=== PATIENT | female | born 1955 | race Caucasian/White ===

== ENCOUNTER → 2016-04-25 | Outpatient (CLI) | payer OTHER ==
[2016-04-25 09:13] LABS: Basophils % (A) 0 %; CH 29.4; CHCM 32.9; Eosinophils # (A) 0.2 k/uL (0-0.7); Eosinophils % (A) 2 %; HDW 2.71; HGB 14.6 gm/dL (11.4-16.0); Luc # (Auto) 0.25; Luc % (Auto) 3; Lymphocytes # (A) 2.7 k/uL (1.0-4.8); Lymphocytes % (A) 31 %; MCH 29.2 pg (25.0-35.0); MCHC 32.6 g/dL (31.0-37.0); MCV 89.6 fL (80.0-100.0); Mean Platelet Volume 7.8; Monocytes # (A) 0.5 k/uL (0-1.0); Monocytes % (A) 5 %; Neutrophils # (A) 5.2 k/uL (1.3-7.7); Neutrophils % (A) 59 %; RBC 5.02 m/uL (3.80-5.40); RDW 12.9 % (11.5-15.5); WBC 8.9 k/uL (3.8-10.6); WBC (Perox) 9.16
[2016-04-25 09:22] LABS: ALT 49 U/L (9-52); AST 25 U/L (14-36); Alkaline Phosphatase 77 U/L (38-126); Anion Gap 11 mmol/L; Blood Urea Nitrogen 15 mg/dL (7-17); Calcium 9.8 mg/dL (8.4-10.2); Carbon Dioxide 29 mmol/L (22-30); Chloride 104 mmol/L (98-107); Cholesterol 266 mg/dL (<200); Glucose 117 mg/dL (74-99); HDL Cholesterol 49 mg/dL (40-60); Non-African American GFR(MDRD) >60 (>60 ml/min/1.73 sqM); Potassium 3.6 mmol/L (3.5-5.1); Sodium 144 mmol/L (137-145); Total Bilirubin 0.6 mg/dL (0.2-1.3); Total Protein 7.3 g/dL (6.3-8.2); Triglycerides 204 mg/dL (<150)
[2016-04-25 09:39] LABS: Appearance,Urine Turbid (Clear); Bacteria,Urine Moderate /hpf; Bilirubin,Urine Negative (Negative); Glucose,Urine (UA) Negative (Negative); Ketones,Urine Negative (Negative); Leukocyte Esterase,Urine Large (Negative); Mucus,Urine Few /hpf; Nitrite,Urine Negative (Negative); PH, Urine 5.5 (5.0-8.0); Particle Count 33583; Protein,Urine 1+ (Negative); RBC,Urine 10 /hpf (0-5); Specific Gravity,Urine 1.019 (1.001-1.035); Squamous Epithelial Cell,Urine 45 /hpf (0-4); UA Billing (MACRO vs. MICRO) MICRO; WBC,Urine >182 /hpf (0-5)
[2016-04-25 10:08] LABS: Hepatitis C Virus IgG Index 0.01
[2016-04-25 10:12] LABS: Hepatitis C Virus IgG Ab Negative (Negative)
== END | disposition home or self-care (01) ==
LOC: LABWHC1 08:44
PROVIDERS: ATTEND Internal Medicine
DX: I10 Essential (primary) hypertension (principal); E55.9 Vitamin D deficiency, unspecified; R53.83 Other fatigue; Z13.9 Encounter for screening, unspecified
CPT/HCPCS: 36415; 80053; 80061; 81001; 82306; 84443; 85025; 86803

== ENCOUNTER → 2016-06-25 | Outpatient (CLI) | payer OTHER | END | disposition home or self-care (01) | LOC: LABWHC1 09:36 | PROVIDERS: ATTEND Internal Medicine Interventional Cardiology | DX: E03.9 Hypothyroidism, unspecified (principal) | CPT/HCPCS: 36415; 84439; 84443 ==

== ENCOUNTER → 2016-12-28 | Outpatient (CLI) | payer OTHER ==
[2016-12-28 10:38] LABS: Basophils % (A) 0 %; CHCM 33.6; Eosinophils # (A) 0.2 k/uL (0-0.7); Eosinophils % (A) 2 %; HCT 43.4 % (34.0-46.0); HGB 14.4 gm/dL (11.4-16.0); Luc % (Auto) 3; Lymphocytes % (A) 26 %; MCH 28.7 pg (25.0-35.0); MCHC 33.1 g/dL (31.0-37.0); MCV 86.6 fL (80.0-100.0); Monocytes # (A) 0.4 k/uL (0-1.0); Monocytes % (A) 5 %; Neutrophils # (A) 4.9 k/uL (1.3-7.7); Neutrophils % (A) 63 %; RBC 5.02 m/uL (3.80-5.40); RDW 13.1 % (11.5-15.5); WBC 7.8 k/uL (3.8-10.6); WBC (Perox) 8.24
[2016-12-28 11:21] LABS: ALT 54 U/L (9-52); AST 26 U/L (14-36); Alkaline Phosphatase 69 U/L (38-126); Anion Gap 10 mmol/L; Blood Urea Nitrogen 14 mg/dL (7-17); Calcium 9.6 mg/dL (8.4-10.2); Carbon Dioxide 27 mmol/L (22-30); Chloride 103 mmol/L (98-107); Cholesterol 245 mg/dL (<200); Glucose 99 mg/dL (74-99); HDL Cholesterol 41 mg/dL (40-60); Non-African American GFR(MDRD) >60 (>60 ml/min/1.73 sqM); Potassium 3.9 mmol/L (3.5-5.1); Sodium 140 mmol/L (137-145); Total Bilirubin 0.7 mg/dL (0.2-1.3); Total Protein 6.9 g/dL (6.3-8.2)
[2016-12-28 12:10] LABS: Hepatitis C Virus IgG Ab Negative (Negative); Hepatitis C Virus IgG Index 0.02
== END | disposition home or self-care (01) ==
LOC: LABWHC1 09:30
PROVIDERS: ATTEND Internal Medicine
DX: E78.5 Hyperlipidemia, unspecified (principal); E55.9 Vitamin D deficiency, unspecified; I10 Essential (primary) hypertension; Z13.9 Encounter for screening, unspecified
CPT/HCPCS: 36415; 80053; 80061; 82306; 85025; 86803

== ENCOUNTER → 2017-10-12 | Outpatient (CLI) | payer OTHER ==
--- NOTE | 2017-10-13 08:28 | MM ---
Reason for exam: screening (asymptomatic). Last mammogram was performed 2 years and 9 months ago. History: Patient is postmenopausal. Benign excisional biopsy of the left breast. Physical Findings: A clinical breast exam by your physician is recommended on an annual basis and results should be correlated with mammographic findings. MG Screening Mammo w CAD Bilateral CC and MLO view(s) were taken. Prior study comparison: January 09, 2015, bilateral MG screening mammo w CAD. August 26, 2012, mammogram, performed at [facility]. The breast tissue is heterogeneously dense. This may lower the sensitivity of mammography. There is no discrete abnormality. ASSESSMENT: Negative, BI-RAD 1 RECOMMENDATION: Routine screening mammogram of both breasts in 1 year.
== END | disposition home or self-care (01) ==
LOC: RADMAMWWP 09:05
PROVIDERS: ATTEND Internal Medicine
DX: Z12.31 Encounter for screening mammogram for malignant neoplasm of breast (principal)
CPT/HCPCS: 77067

== ENCOUNTER → 2018-05-10 | Outpatient (CLI) | payer OTHER ==
[2018-05-10 08:55] LABS: Basophils % (A) 1 %; Eosinophils # (A) 0.2 k/uL (0-0.7); Eosinophils % (A) 3 %; HGB 14.6 gm/dL (11.4-16.0); Lymphocytes # (A) 2.4 k/uL (1.0-4.8); Lymphocytes % (A) 28 %; MCH 28.4 pg (25.0-35.0); MCHC 32.3 g/dL (31.0-37.0); MCV 87.9 fL (80.0-100.0); Monocytes # (A) 0.4 k/uL (0-1.0); Monocytes % (A) 5 %; Neutrophils # (A) 5.3 k/uL (1.3-7.7); Neutrophils % (A) 63 %; Platelet Count 223 k/uL (150-450); RBC 5.12 m/uL (3.80-5.40); RDW 13.6 % (11.5-15.5); WBC 8.5 k/uL (3.8-10.6)
[2018-05-10 09:26] LABS: Appearance,Urine Cloudy (Clear); Bacteria,Urine Rare /hpf; Bilirubin,Urine Negative (Negative); Blood,Urine Negative (Negative); Color,Urine Yellow; Glucose,Urine (UA) Negative (Negative); Ketones,Urine Negative (Negative); Leukocyte Esterase,Urine Large (Negative); Mucus,Urine Rare /hpf; Nitrite,Urine Negative (Negative); Protein,Urine Negative (Negative); Specific Gravity,Urine 1.012 (1.001-1.035); Squamous Epithelial Cell,Urine 13 /hpf (0-4); Urobilinogen,Urine <2.0 mg/dL (<2.0); WBC,Urine 32 /hpf (0-5)
[2018-05-10 17:49] LABS: Albumin 4.3 g/dL (3.80-4.90); Albumin/Globulin Ratio 1.95 (1.20-2.10); Calcium 9.3 mg/dL (8.7-10.3); Globulin 2.2 g/dL (1.6-3.3); LDL Cholesterol,Calculated 143.8 mg/dL (0.0-131.0); Potassium 4.2 mmol/L (3.5-5.5); Total Bilirubin 0.4 mg/dL (0.3-1.2); Total Protein 6.5 g/dL (6.2-8.2); VLDL Calculation 29.2 mg/dL (5.00-40.00)
== END | disposition home or self-care (01) ==
LOC: LABWHC1 08:06
PROVIDERS: ATTEND Internal Medicine
DX: E55.9 Vitamin D deficiency, unspecified (principal); I10 Essential (primary) hypertension
CPT/HCPCS: 36415; 80053; 80061; 81001; 82306; 85025

== ENCOUNTER 2018-08-26 10:42 | Day surgery (SDC) | payer OTHER ==
[2018-08-25 09:51] VITALS: BMI 33.4
[2018-08-26 11:15] VITALS: TEMP 96.9
[2018-08-26] MEDS ORDERED: LACTATED RINGERS 1,000 ML IV ONE (11:15)
[2018-08-26] MEDS ORDERED: PROPOFOL 10 MG/ML 20 ML VIAL IV ONE (12:07)
--- NOTE | 2018-08-26 12:21 | P.PCN ---
Date of Procedure: 08/26/18 Procedure(s) Performed: BRIEF HISTORY: Patient is a 63-year-old pleasant 8 female scheduled for an elective colonoscopy as a part of value should of Hemoccult-positive stool. PROCEDURE PERFORMED: Colonoscopy with biopsy. PREOPERATIVE DIAGNOSIS: Hemoccult-positive stool. IV sedation per Anesthesia. PROCEDURE: After informed consent was obtained, the patient, was brought into the endoscopy unit. IV sedation was administered by Anesthesia under continuous monitoring. Digital rectal examination was normal. Initially the Olympus CF-160 flexible video colonoscope was then inserted in the rectum, gradually advanced into the cecum without any difficulty. Careful examination was performed as the scope was gradually being withdrawn. Ileocecal valve and the appendiceal orifice were visualized and appeared normal. Prep was excellent. Mucosa of the cecum, appeared normal. In the ascending colon there was a 2-3 mm sessile polyp that was removed by cold biopsy. The rest of the ascending colon, transverse colon, descending colon, sigmoid colon, and rectum appeared normal. Scattered sigmoid diverticulosis seen. Retroflexion was performed in the rectum and no lesions were seen. The patient tolerated the procedure well. IMPRESSION: 2-3 mm sessile ascending colon polyp status post removal by cold biopsy Scattered sigmoid diverticulosis RECOMMENDATIONS: Findings of this examination were discussed with the patient as well as her family. She was advised to follow with the biopsy results. If the biopsy shows adenoma she can have a repeat colonoscopy in 5 years.
[2018-08-26 12:27] VITALS: RESP 18
[2018-08-26 12:38] VITALS: BP 113/66; PULSE 82
== END 2018-08-26 12:54 | disposition home or self-care (01) ==
LOC: ORWHC2ENDO 10:42
PROVIDERS: ATTEND Internal Medicine Gastroenterology
DX: D12.2 Benign neoplasm of ascending colon (principal); K57.30 Diverticulosis of large intestine without perforation or abscess without bleeding; I10 Essential (primary) hypertension; E78.5 Hyperlipidemia, unspecified; K21.9 Gastro-esophageal reflux disease without esophagitis; Z79.899 Other long term (current) drug therapy; Z86.11 Personal history of tuberculosis
CPT/HCPCS: 88305; 45380; J2704

== ENCOUNTER → 2019-10-13 | Outpatient (CLI) | payer OTHER ==
--- NOTE | 2019-10-16 11:27 | MM ---
Reason for exam: screening (asymptomatic). Last mammogram was performed 2 years ago. History: Patient is postmenopausal. Benign excisional biopsy of the left breast. Physical Findings: A clinical breast exam by your physician is recommended on an annual basis and results should be correlated with mammographic findings. MG Screening Mammo w CAD Bilateral CC and MLO view(s) were taken. Prior study comparison: October 12, 2017, bilateral MG screening mammo w CAD. January 09, 2015, bilateral MG screening mammo w CAD. The breast tissue is heterogeneously dense. This may lower the sensitivity of mammography. Subtle focal asymmetry 1 o'clock right breast more defined from prior. ASSESSMENT: Incomplete: need additional imaging evaluation, BI-RAD 0 RECOMMENDATION: Special view mammogram of the right breast. (3D) If lesion persists on supplemental views, image directed ultrasound is recommended. [facility] will attempt to contact patient to return for supplemental views and ultrasound if indicated.
== END | disposition home or self-care (01) ==
LOC: RADMAMWWP 13:28
PROVIDERS: ATTEND Internal Medicine
DX: Z12.31 Encounter for screening mammogram for malignant neoplasm of breast (principal)
CPT/HCPCS: 77067

== ENCOUNTER → 2019-10-25 | Outpatient (CLI) | payer OTHER ==
--- NOTE | 2019-10-25 13:29 | MM ---
Reason for exam: additional evaluation requested from abnormal screening. Last mammogram was performed less than 1 month ago. History: Patient is postmenopausal. Benign excisional biopsy of the left breast. Physical Findings: Nurse did not find any significant physical abnormalities on exam. MG Work Up Mamm w CAD RT Spot compression CC, spot compression MLO, and LM view(s) were taken of the right breast. Prior study comparison: October 13, 2019, bilateral MG screening mammo w CAD. October 12, 2017, bilateral MG screening mammo w CAD. There are scattered fibroglandular densities. No significant new findings when compared with previous films. These results were verbally communicated with the patient and result sheet given to the patient on 10/25/19. ASSESSMENT: Benign, BI-RAD 2 RECOMMENDATION: Return to routine screening mammogram schedule for both breasts.
== END | disposition home or self-care (01) ==
LOC: RADMAMWWP 08:53
PROVIDERS: ATTEND Internal Medicine
DX: R92.8 Other abnormal and inconclusive findings on diagnostic imaging of breast (principal)
CPT/HCPCS: 77065

== ENCOUNTER → 2020-01-22 | Outpatient (CLI) | payer OTHER ==
[2020-01-22 09:34] LABS: Basophils % (A) 0 %; Eosinophils # (A) 0.1 k/uL (0-0.7); Eosinophils % (A) 1 %; HCT 43.5 % (34.0-46.0); HGB 14.2 gm/dL (11.4-16.0); Lymphocytes # (A) 2.3 k/uL (1.0-4.8); Lymphocytes % (A) 25 %; MCH 28.5 pg (25.0-35.0); MCHC 32.7 g/dL (31.0-37.0); Mean Platelet Volume 8.1; Monocytes # (A) 0.5 k/uL (0-1.0); Monocytes % (A) 5 %; Neutrophils # (A) 6.2 k/uL (1.3-7.7); Neutrophils % (A) 67 %; Platelet Count 230 k/uL (150-450); RBC 4.99 m/uL (3.80-5.40); RDW 13.1 % (11.5-15.5); WBC 9.3 k/uL (3.8-10.6)
[2020-01-22 10:01] LABS: Appearance,Urine Cloudy (Clear); Bacteria,Urine Rare /hpf; Bilirubin,Urine Negative (Negative); Blood,Urine Negative (Negative); Color,Urine Light Yellow; Glucose,Urine (UA) Negative (Negative); Ketones,Urine Negative (Negative); Leukocyte Esterase,Urine Large (Negative); Mucus,Urine Rare /hpf; Nitrite,Urine Negative (Negative); PH, Urine 6.5 (5.0-8.0); Protein,Urine Negative (Negative); Specific Gravity,Urine 1.013 (1.001-1.035); Squamous Epithelial Cell,Urine 12 /hpf (0-4); Urobilinogen,Urine <2.0 mg/dL (<2.0); WBC,Urine 17 /hpf (0-5)
[2020-01-22 17:20] LABS: African American GFR (CKD) 106.1 (60.0-200.0); Albumin 4.2 g/dL (3.80-4.90); Albumin/Globulin Ratio 1.83 (1.60-3.17); Anion Gap 8.3 mmol/L (4.00-12.00); BUN/Creat Ratio 21.43 Ratio (12.00-20.00); Calcium 9.5 mg/dL (8.7-10.3); Carbon Dioxide 27.7 mmol/L (21.6-31.8); Chol/HDL Ratio 5.2; Globulin 2.3 g/dL (1.6-3.3); Non-African American GFR(CKD) 91.6 (60.0-200.0); Potassium 3.9 mmol/L (3.5-5.5); Total Bilirubin 0.6 mg/dL (0.2-1.2); Total Protein 6.5 g/dL (6.2-8.2)
== END | disposition home or self-care (01) ==
LOC: LABWHC1 08:25
PROVIDERS: ATTEND Internal Medicine
DX: I10 Essential (primary) hypertension (principal); E55.9 Vitamin D deficiency, unspecified
CPT/HCPCS: 36415; 80053; 80061; 81001; 82306; 85025; 87086

== ENCOUNTER → 2020-08-14 | Outpatient (CLI) | payer MEDICARE, OTHER ==
[2020-08-14 15:35] LABS: HCT 41.2 % (37.2-46.3); HGB 13.1 g/dL (12.0-15.0); MCHC 31.8 g/dL (32.0-37.0); MCV 91.4 fL (80.0-97.0); Mean Platelet Volume 11.4 fL (9.5-12.2); Platelet Count 190 X 10*3/uL (140-440); RBC 4.51 X 10*6/uL (4.10-5.20); RDW 13.2 % (11.5-14.5); WBC 7.96 X 10*3/uL (4.50-10.00)
[2020-08-14 21:49] LABS: African American GFR (CKD) 105.4 (60.0-200.0); Albumin 4.2 g/dL (3.80-4.90); Albumin/Globulin Ratio 2.33 (1.60-3.17); Anion Gap 7.5 mmol/L (4.00-12.00); BUN/Creat Ratio 15.71 Ratio (12.00-20.00); Calcium 9.3 mg/dL (8.7-10.3); Carbon Dioxide 27.5 mmol/L (21.6-31.8); Chol/HDL Ratio 4.31; Globulin 1.8 g/dL (1.6-3.3); LDL Cholesterol,Calculated 108.4 mg/dL (0.0-131.0); Non-African American GFR(CKD) 90.9 (60.0-200.0); Total Bilirubin 0.6 mg/dL (0.3-1.2); VLDL Calculation 30.6 mg/dL (5.00-40.00)
[2020-08-14 21:58] LABS: T4, Free (Free Thyroxine) 1.1 ng/dL (0.80-1.80)
== END | disposition home or self-care (01) ==
LOC: LABWHC1 09:38
PROVIDERS: ATTEND Family Medicine
DX: Z00.01 Encounter for general adult medical examination with abnormal findings (principal)
CPT/HCPCS: 36415; 80053; 80061; 84439; 84443; 85027

== ENCOUNTER → 2021-06-13 | Outpatient (CLI) | payer MEDICARE, OTHER ==
--- NOTE | 2021-06-13 12:51 | NM ---
EXAMINATION TYPE: NM stress lexiscan cardiolite DATE OF EXAM: 06/13/2021 COMPARISON: Prior exam 02/27/2015 HISTORY: R07.89 TECHNIQUE: After the intravenous administration of 9.8 mCi Tc 99m Sestamibi - Cardiolite resting SPE CT images acquired 60 minutes post injection. The patient received 0.4mg Lexiscan, 24.4 mCi Tc 99m Sestamibi - Stress images obtained [address] injection FINDINGS: Review of stress and rest SPECT images demonstrates decreased uptake along the anteroseptal left vent ricle on stress and rest images more so on stress images, similar findings towards the base of the he art along the inferior lateral left ventricle. Gated analysis shows normal wall motion with an estim ated left ventricular ejection fraction of 66 %. IMPRESSION: Pharmacologically induced left ventricular myocardial ischemia, consider echocardiographic correlatio n for elevated ejection fraction. Referring clinician notified via perfect serve
--- NOTE | 2021-06-13 13:28 | EST ---
EXERCISE STRESS AGE: 66 SEX: F HT: 5'5" WT: 197 lbs. PROTOCOL: Lexiscan Cardiolite STAGE: NA DURATION OF EXERCISE: NA HEART RATE REST: 63 BLOOD PRESSURE REST: 177/92 MAXIMUM HEART RATE ACHIEVED: 102 MAXIMUM BLOOD PRESSURE: 177/92 85% MPHR: 131 100% MPHR: 154 METS: NA INDICATIONS: Chest pressure CLINICAL INFORMATION: Baseline rhythm is sinus mechanism, rate of 63, right bundle branch block. Baseline blood pressure 177/92 mmHg. Patient received injection of Lexiscan. Electrocardiographic monitoring revealed no evidence of diagnostic ischemic ST deviation. Cardiolite was injected per protocol. CONCLUSION: 1. Nondiagnostic electrocardiograph stress testing. 2. Nuclear images will be reported separately. MMODL / IJN: [id number] /
== END | disposition home or self-care (01) ==
LOC: RADNMMAIN 08:18
PROVIDERS: ATTEND Family Medicine
DX: I25.9 Chronic ischemic heart disease, unspecified (principal)
CPT/HCPCS: 93017; 78452; A9500

== ENCOUNTER 2022-02-02 08:35 | Observation (INO) | payer MEDICARE, OTHER ==
[2022-02-02] MEDS ORDERED: NITROGLYCERIN OINT 1 INCH/GM PACKET TOPICAL STA (08:55)
[2022-02-02] MEDS ORDERED: ASPIRIN 81 MG PO STA (08:55)
--- NOTE | 2022-02-02 08:59 | ED ---
General Adult HPI - General Chief complaint: Chest Pain Stated complaint: Cold sweats,chest pain Time Seen by Provider: 02/02/22 08:47 Source: patient, RN notes reviewed Mode of arrival: ambulatory Limitations: no limitations - History of Present Illness Initial comments: Patient is a pleasant 66-year-old female presenting to the emergency Department with chest discomfort. Onset of symptoms was the past hour or 2. Discomfort was 8/10 however has improved on its own to now 2/10. No history of similar symptoms previous a. Discomfort feels like pressure. Patient was diaphoretic. Patient did have associated nausea and dyspnea. No leg pain or leg swelling. Patient was recently diagnosed with COVID-19 infection week ago. - Related Data Home Medications Medication Instructions Recorded Confirmed Metoprolol Tartrate [Lopressor] 100 mg PO DAILY 09/17/14 08/25/18 amLODIPine [Norvasc] 10 mg PO DAILY 09/17/14 08/25/18 Lansoprazole [Prevacid] 30 mg PO DAILY PRN 11/18/15 08/25/18 hydroCHLOROthiazide [Hydrodiuril] 25 mg PO DAILY 11/18/15 08/25/18 Cholecalciferol (Vitamin D3) 2,000 unit PO DAILY 08/25/18 08/25/18 [Vitamin D3] Simvastatin 10 mg PO DAILY 08/25/18 08/25/18 busPIRone HCL 5 mg PO DAILY PRN 08/25/18 08/25/18 Allergies Allergy/AdvReac Type Severity Reaction Status Date / Time No Known Allergies Allergy Verified 02/02/22 08:37 Review of Systems ROS Statement: Those systems with pertinent positive or pertinent negative responses have been documented in the HPI. ROS Other: All systems not noted in ROS Statement are negative. Constitutional: Denies: fever Eyes: Denies: eye pain ENT: Denies: ear pain Respiratory: Reports: as per HPI Cardiovascular: Reports: as per HPI, chest pain Endocrine: Denies: fatigue Gastrointestinal: Denies: abdominal pain Genitourinary: Denies: dysuria Musculoskeletal: Denies: back pain Skin: Denies: rash Neurological: Denies: weakness Past Medical History Past Medical History: Chest Pain / Angina, GERD/Reflux, Hyperlipidemia, Hypertension, Thyroid Disorder Additional Past Medical History / Comment(s): BACK PAIN History of Any Multi-Drug Resistant Organisms: None Reported Past Surgical History: Hernia Repair Additional Past Surgical History / Comment(s): HIATAL HERNIA REPAIR Past Anesthesia/Blood Transfusion Reactions: No Reported Reaction Additional Past Anesthesia/Blood Transfusion Reaction / Comment(s): HAD A DIFFICULT TIME WITH GAS POST OP HIATAL HERNIA Past Psychological History: Anxiety Smoking Status: Never smoker Past Alcohol Use History: None Reported Past Drug Use History: None Reported - Past Family History Father Family Medical History: Coronary Artery Disease (CAD) Mother Family Medical History: Diabetes Mellitus General Exam Limitations: no limitations General appearance: alert, in no apparent distress Head exam: Present: normocephalic Eye exam: Present: normal appearance Neck exam: Present: normal inspection Respiratory exam: Present: normal lung sounds bilaterally. Absent: chest wall tenderness Cardiovascular Exam: Present: regular rate, normal rhythm Expanded Peripheral pulses: 2+: Radial (R), Radial (L), Posterior Tibialis (R), Posterior Tibialis (L) GI/Abdominal exam: Present: soft. Absent: tenderness Extremities exam: Present: normal inspection. Absent: pedal edema, calf tenderness Neurological exam: Present: alert Psychiatric exam: Present: normal affect, normal mood Skin exam: Present: normal color Course Vital Signs 02/02/22 02/02/22 08:37 09:15 Temperature 98.7 F Pulse Rate 61 Pulse Rate [ 54 L Sitting Alligator Trapper] Respiratory 18 Rate Blood Pressure 153/86 O2 Sat by Pulse 99 Oximetry EKG Findings - EKG Comments: EKG Findings:: Size pericardial 53. ID 164. QRS 134. QT 42. QTC 466. Normal axis. Right bundle branch block. No acute ST change. Medical Decision Making - Medical Decision Making Patient reevaluated and resting comfortably in bed. Patient and family updated on results and plan. Case was discussed with Dr. Sidhu, who will admit covering hospital call. - Lab Data Result diagrams: 02/02/22 09:21 02/02/22 09:21 Lab Results 02/02/22 02/02/22 02/02/22 Range/Units 09:21 09:21 09:21 WBC 8.2 (3.8-10.6) k/uL RBC 5.08 (3.80-5.40) m/uL Hgb 15.5 (11.4-16.0) gm/dL Hct 45.0 (34.0-46.0) % MCV 88.5 (80.0-100.0) fL MCH 30.4 (25.0-35.0) pg MCHC 34.4 (31.0-37.0) g/dL RDW 12.8 (11.5-15.5) % Plt Count 155 (150-450) k/uL MPV 9.9 Neutrophils % 65 % Lymphocytes % 26 % Monocytes % 6 % Eosinophils % 1 % Basophils % 1 % Neutrophils # 5.3 (1.3-7.7) k/uL Lymphocytes # 2.1 (1.0-4.8) k/uL Monocytes # 0.5 (0-1.0) k/uL Eosinophils # 0.1 (0-0.7) k/uL Basophils # 0.1 (0-0.2) k/uL PT 10.9 (9.0-12.0) sec INR 1.0 (<1.2) APTT 22.1 (22.0-30.0) sec D-Dimer 0.39 (<0.60) mg/L FEU Sodium 135 L (137-145) mmol/L Potassium 3.8 (3.5-5.1) mmol/L Chloride 98 (98-107) mmol/L Carbon Dioxide 23 (22-30) mmol/L Anion Gap 14 mmol/L BUN 13 (7-17) mg/dL Creatinine 0.73 (0.52-1.04) mg/dL Est GFR (CKD-EPI)AfAm >90 (>60 ml/min/1.73 sqM) Est GFR (CKD-EPI)NonAf 86 (>60 ml/min/1.73 sqM) Glucose 145 H (74-99) mg/dL Calcium 8.8 (8.4-10.2) mg/dL Magnesium 1.7 (1.6-2.3) mg/dL Total Bilirubin 0.7 (0.2-1.3) mg/dL AST 49 H (14-36) U/L ALT 72 H (4-34) U/L Alkaline Phosphatase 56 (38-126) U/L Troponin I (0.000-0.034) ng/mL Total Protein 6.4 (6.3-8.2) g/dL Albumin 3.9 (3.5-5.0) g/dL 02/02/22 Range/Units 09:21 WBC (3.8-10.6) k/uL RBC (3.80-5.40) m/uL Hgb (11.4-16.0) gm/dL Hct (34.0-46.0) % MCV (80.0-100.0) fL MCH (25.0-35.0) pg MCHC (31.0-37.0) g/dL RDW (11.5-15.5) % Plt Count (150-450) k/uL MPV Neutrophils % % Lymphocytes % % Monocytes % % Eosinophils % % Basophils % % Neutrophils # (1.3-7.7) k/uL Lymphocytes # (1.0-4.8) k/uL Monocytes # (0-1.0) k/uL Eosinophils # (0-0.7) k/uL Basophils # (0-0.2) k/uL PT (9.0-12.0) sec INR (<1.2) APTT (22.0-30.0) sec D-Dimer (<0.60) mg/L FEU Sodium (137-145) mmol/L Potassium (3.5-5.1) mmol/L Chloride (98-107) mmol/L Carbon Dioxide (22-30) mmol/L Anion Gap mmol/L BUN (7-17) mg/dL Creatinine (0.52-1.04) mg/dL Est GFR (CKD-EPI)AfAm (>60 ml/min/1.73 sqM) Est GFR (CKD-EPI)NonAf (>60 ml/min/1.73 sqM) Glucose (74-99) mg/dL Calcium (8.4-10.2) mg/dL Magnesium (1.6-2.3) mg/dL Total Bilirubin (0.2-1.3) mg/dL AST (14-36) U/L ALT (4-34) U/L Alkaline Phosphatase (38-126) U/L Troponin I <0.012 (0.000-0.034) ng/mL Total Protein (6.3-8.2) g/dL Albumin (3.5-5.0) g/dL - Radiology Data Radiology results: image reviewed (Chest x-ray shows no acute process) Disposition Clinical Impression: Chest pain Disposition: ADMITTED IP TO THIS HOSP Is patient prescribed a controlled substance at d/c from ED?: No Referrals: None,Stated [Primary Care Provider] - 1-2 days Time of Disposition: 10:22
[2022-02-02 09:43] LABS: Basophils # (A) 0.1 k/uL (0-0.2); Basophils % (A) 1 %; Eosinophils # (A) 0.1 k/uL (0-0.7); Eosinophils % (A) 1 %; HGB 15.5 gm/dL (11.4-16.0); Lymphocytes # (A) 2.1 k/uL (1.0-4.8); Lymphocytes % (A) 26 %; MCH 30.4 pg (25.0-35.0); MCHC 34.4 g/dL (31.0-37.0); MCV 88.5 fL (80.0-100.0); Mean Platelet Volume 9.9; Monocytes # (A) 0.5 k/uL (0-1.0); Monocytes % (A) 6 %; Neutrophils # (A) 5.3 k/uL (1.3-7.7); Neutrophils % (A) 65 %; Platelet Count 155 k/uL (150-450); RBC 5.08 m/uL (3.80-5.40); RDW 12.8 % (11.5-15.5); WBC 8.2 k/uL (3.8-10.6)
--- NOTE | 2022-02-02 09:46 | XR ---
EXAMINATION TYPE: XR chest 2V DATE OF EXAM: 02/02/2022 COMPARISON: Chest x-ray August 27, 2015 HISTORY: Chest pain. TECHNIQUE: Frontal and lateral views of the chest are obtained. FINDINGS: There is mild chronic parenchymal change without suspicious focal air space opacity, pleur al effusion, or pneumothorax seen. The cardiac silhouette size is stable and upper limits of normal. There is S-shaped scoliosis redemonstrated. Surgical clips epigastric region redemonstrated. Overlyi ng EKG leads are in current study. IMPRESSION: No acute process. No significant change from prior.
[2022-02-02 09:51] LABS: ALT 72 U/L (4-34); AST 49 U/L (14-36); African American GFR (CKD) >90 (>60 ml/min/1.73 sqM); Albumin 3.9 g/dL (3.5-5.0); Alkaline Phosphatase 56 U/L (38-126); Anion Gap 14 mmol/L; Blood Urea Nitrogen 13 mg/dL (7-17); Calcium 8.8 mg/dL (8.4-10.2); Carbon Dioxide 23 mmol/L (22-30); Chloride 98 mmol/L (98-107); Glucose 145 mg/dL (74-99); Magnesium 1.7 mg/dL (1.6-2.3); Non-African American GFR(CKD) 86 (>60 ml/min/1.73 sqM); Potassium 3.8 mmol/L (3.5-5.1); Sodium 135 mmol/L (137-145); Total Bilirubin 0.7 mg/dL (0.2-1.3); Total Protein 6.4 g/dL (6.3-8.2)
[2022-02-02 09:59] LABS: Partial Thromboplastin Time 22.1 sec (22.0-30.0); Prothrombin Time 10.9 sec (9.0-12.0)
[2022-02-02] MEDS ORDERED: NITROGLYCERIN SL TABS 0.4 MG TAB SUBLINGUAL PRN (10:22)
[2022-02-02] MEDS ORDERED: NITROGLYCERIN OINT 1 INCH/GM PACKET TOPICAL SCH (12:00)
[2022-02-02] MEDS ORDERED: HEPARIN SODIUM 1,000 UN/ML (10ML VL) IV PRN (12:24)
[2022-02-02] MEDS ORDERED: HEPARIN SODIUM 1,000 UN/ML (10ML VL) IV ONE (12:24)
[2022-02-02] MEDS ORDERED: HEPARIN SOD,PORK IN 0.45% NACL 25,000 UNIT in 0.45% NACL 1 250ML.BAG IV SCH (12:30)
--- NOTE | 2022-02-02 12:53 | P.CRDCN ---
History of Present Illness History of present illness: HISTORY OF PRESENTING ILLNESS This is a pleasant 66 year-old female past medical history significant for hypertension, dyslipidemia. 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 Aldrich in 2017 We have been asked to see in consultation for chest pain. Patient presents to the emergency department with complaints of chest discomfort. This morning, she got up, was doing her normal daily activities, and had acute onset upper/midsternal chest pressure and heaviness. It was non- radiating, non-exertional. She states it would come and go and became more frequent. She had associated shortness of breath, diaphoresis and nausea. No specific alleviating or aggravating factors. No emesis, denies any lightheadedness, dizziness, syncope or near syncope. She denies any headache, fever, cough or chills. She decided to present to the ER for further evaluation. She denies history of CAD, VT, Stroke, diabetes. She denies tobacco use, alcohol or illicit drug use. Family history includes father had CABG in his early 60s. She refused to take nitro secondary to side effects of headache. She remembers having her Lexiscan stress test a few months ago and was told that it was normal. DIAGNOSTICS * EKG reveals sinus bradycardia, heart rate 53, T wave inversion in lead III, incomplete right bundle branch block. * Last Cardiac Catheterization 2015 with no significant coronary artery disease * Lexiscan stress test 06/13/2021 reported pharmacologically induced left ventricular myocardial ischemia along the anteroseptal * Echocardiogram 02/2015 revealed EF 50%, mild mitral regurgitation * Chest xray no acute cardiopulmonary process * Laboratory reviewed, troponin negative, CBC unremarkable, d-dimer negative, sodium 135, potassium 3.8, BUN 13, serum creatinine 0.7 * Current home medications include valsartan/surgical thiazide 25920 milligrams daily, simvastatin 10 mg every 48 hours, Toprol succinate 50 mg twice a day REVIEW OF SYSTEMS CONSTITUTIONAL: Denies fever or chills. CARDIOVASCULAR: + chest pain, +shortness of breath, Denies orthopnea, PND or palpitations. RESPIRATORY: Denies cough. GASTROINTESTINAL: Denies abdominal pain, diarrhea, constipation,+ nausea Denies vomiting. MUSCULOSKELETAL: Denies myalgias. NEUROLOGIC: Denies numbness, tingling, headache or weakness. ENDOCRINE: Denies fatigue, weight change, polydipsia or polyurina. GENITOURINARY: Denies burning, hematuria or urgency with micturation. HEMATOLOGIC: Denies history of anemia or bleeding. PHYSICAL EXAMINATION Vitals reviewed CONSTITUTIONAL: No apparent distress. HEENT: Head is normocephalic. Pupils are equal, round. Sclerae anicteric. Mucous membranes of the mouth are moist. No JVD. No carotid bruit. CHEST EXAMINATION: Lungs are clear to auscultation. No chest wall tenderness is noted on palpation or with deep breathing. HEART EXAMINATION: Regular rate and rhythm. S1, S2 heard. No murmurs, gallops or rub. ABDOMEN: Soft, nontender. Positive bowel sounds. EXTREMITIES: 2+ peripheral pulses, no lower extremity edema and no calf tenderness. SKIN: warm, dry NEUROLOGIC EXAMINATION: Patient is awake, alert and oriented x3. ASSESSMENT Chest pain concerning for cardiac etiology, first troponin negative Abnormal reported lexiscan stress test 06/13/2021 Hypertension Dyslipidemia PLAN Trend Troponins Repeat EKG Obtain 2D echocardiogram and doppler study to assess cardiac structure and function. Start IV Heparin drip, with pending above workup Aspirin, statin, nitrates NPO after midnight Lipid panel Further recommendations based on evaluation by Dr. Aldrich and clinical course Thank you kindly for this consultation. Nurse practitioner note has been reviewed by physician. Signing provider agrees with the documented findings, assessment, and plan of care. Past Medical History Past Medical History: Chest Pain / Angina, GERD/Reflux, Hyperlipidemia, Hypertension, Thyroid Disorder Additional Past Medical History / Comment(s): BACK PAIN History of Any Multi-Drug Resistant Organisms: None Reported Past Surgical History: Hernia Repair Additional Past Surgical History / Comment(s): HIATAL HERNIA REPAIR Past Anesthesia/Blood Transfusion Reactions: No Reported Reaction Additional Past Anesthesia/Blood Transfusion Reaction / Comment(s): HAD A DIFFICULT TIME WITH GAS POST OP HIATAL HERNIA Past Psychological History: Anxiety Smoking Status: Never smoker Past Alcohol Use History: None Reported Past Drug Use History: None Reported - Past Family History Father Family Medical History: Coronary Artery Disease (CAD) Mother Family Medical History: Diabetes Mellitus Medications and Allergies Home Medications Medication Instructions Recorded Confirmed Type Simvastatin 10 mg PO Q48H 08/25/18 02/02/22 History busPIRone HCL 5 mg PO BID 08/25/18 02/02/22 History Metoprolol Succinate (ER) [Toprol 50 mg PO BID 02/02/22 02/02/22 History Xl] Omeprazole 20 mg PO HS 02/02/22 02/02/22 History Valsartan/Hydrochlorothiazide 1 tab PO DAILY@1200 02/02/22 02/02/22 History [Valsartan-Hctz 320-25 mg Tab] Allergies Allergy/AdvReac Type Severity Reaction Status Date / Time No Known Allergies Allergy Verified 02/02/22 11:23 Physical Exam Vitals: Vital Signs Temp Pulse Pulse Resp BP Pulse Ox 02/02/22 10:29 55 L 18 134/92 99 02/02/22 09:15 54 L 02/02/22 08:37 98.7 F 61 18 153/86 99 Intake and Output 02/01/22 02/02/22 02/02/22 22:59 06:59 14:59 Other: Weight 90.718 kg Results 02/02/22 09:21 02/02/22 09:21 Cardiac Enzymes 02/02/22 02/02/22 Range/Units 09:21 09:21 AST 49 H (14-36) U/L Troponin I <0.012 (0.000-0.034) ng/mL Coagulation 02/02/22 Range/Units 09:21 PT 10.9 (9.0-12.0) sec APTT 22.1 (22.0-30.0) sec CBC 02/02/22 Range/Units 09:21 WBC 8.2 (3.8-10.6) k/uL RBC 5.08 (3.80-5.40) m/uL Hgb 15.5 (11.4-16.0) gm/dL Hct 45.0 (34.0-46.0) % Plt Count 155 (150-450) k/uL Comprehensive Metabolic Panel 02/02/22 Range/Units 09:21 Sodium 135 L (137-145) mmol/L Potassium 3.8 (3.5-5.1) mmol/L Chloride 98 (98-107) mmol/L Carbon Dioxide 23 (22-30) mmol/L BUN 13 (7-17) mg/dL Creatinine 0.73 (0.52-1.04) mg/dL Glucose 145 H (74-99) mg/dL Calcium 8.8 (8.4-10.2) mg/dL AST 49 H (14-36) U/L ALT 72 H (4-34) U/L Alkaline Phosphatase 56 (38-126) U/L Total Protein 6.4 (6.3-8.2) g/dL Albumin 3.9 (3.5-5.0) g/dL Current Medications Generic Name Dose Route Start Last Admin Trade Name Freq PRN Reason Stop Dose Admin Aspirin 325 mg 02/03/22 09:00 Aspirin 325 Mg Tab PO DAILY ANA M Nitroglycerin 0.4 mg 02/02/22 10:22 Nitroglycerin Sl Tabs 0.4 Mg Tab SUBLINGUAL Q5M PRN Chest Pain Nitroglycerin 1 inch 02/02/22 12:00 Nitroglycerin Oint 1 Inch/Gm Packet TOPICAL Q6HR ANA M Sodium Chloride 10 ml 02/02/22 21:00 Sodium Chloride 0.9% Flush 10 Ml Syringe IV BID ANA M Intake and Output 02/01/22 02/02/22 02/02/22 22:59 06:59 14:59 Other: Weight 90.718 kg Patient Weight 02/03/22 06:59 Weight 90.718 kg 02/02/22 09:21 02/02/22 09:21
[2022-02-02] MEDS: hydroCHLOROthiazide 25 MG TAB PO SCH (13:57)
[2022-02-02] MEDS: VALSARTAN 160 MG TAB PO SCH (13:57)
--- NOTE | 2022-02-02 17:17 | CA ---
Transthoracic Echo Report Name: Yaritza Wallace Age: 66 Gender: F : 1955 Exam Date: 02/02/2022 14:20 Exam Location: [place] [facility] Ht (in): 64 Wt (lb): 200 Ordering Physician: Sheri Miller Attending/Referring Phys: Molasses Preparer Zamzam Villa RDCS Procedure CPT: Indications: Chest Pain Cardiac Hx: Technical Quality: Fair Contrast 1: Total Dose (mL): Contrast 2: Total Dose (mL): MEASUREMENTS (Male / Female) Normal Values 2D ECHO LV Diastolic Diameter PLAX 3.4 cm 4.2 - 5.9 / 3.9 - 5.3 cm LV Systolic Diameter PLAX 2.2 cm IVS Diastolic Thickness 1.5 cm 0.6 - 1.0 / 0.6 - 0.9 cm LVPW Diastolic Thickness 1.2 cm 0.6 - 1.0 / 0.6 - 0.9 cm LV Relative Wall Thickness 0.8 RV Internal Dim ED PLAX 4.2 cm LA Volume 44.7 cm??? 18 - 58 / 22 - 52 cm??? M-MODE Aortic Root Diameter MM 2.5 cm LA Systolic Diameter MM 3.9 cm LA Ao Ratio MM 1.6 AV Cusp Separation MM 1.4 cm DOPPLER AV Peak Velocity 207.8 cm/s AV Peak Gradient 17.3 mmHg AV Mean Velocity 163.3 cm/s AV Mean Gradient 11.7 mmHg AV Velocity Time Integral 44.7 cm LVOT Peak Velocity 122.7 cm/s LVOT Peak Gradient 6.0 mmHg MV Area PHT 2.3 cm??? Mitral E Point Velocity 79.4 cm/s Mitral A Point Velocity 98.3 cm/s Mitral E to A Ratio 0.8 MV Deceleration Time 328.0 ms FINDINGS Left Ventricle Moderately increased left ventricular wall thickness. Normal left ventricular systolic function with no obvious regional wall motion abnormalities. Left ventricular ejection fraction is estimated at 55-60 %. Right Ventricle Moderate right ventricular dilatation. Right Atrium Normal right atrial size. Left Atrium Normal left atrial size. Mitral Valve Structurally normal mitral valve. Trace to mild mitral regurgitation. Aortic Valve Aortic valve sclerosis. No aortic regurgitation. Tricuspid Valve Structurally normal tricuspid valve. Mild tricuspid regurgitation. Pulmonic Valve Trace pulmonic regurgitation. Pericardium No pericardial effusion. Prominent epicardial fat. Aorta Normal size aortic root and proximal ascending aorta. CONCLUSIONS Normal LV size and systolic function. Mild to moderate concentric LVH. Aortic sclerosis and mild mitral and oral calcification. No pericardial effusion mild mitral and tricuspid insufficiency Previewed by: Dr. Mai Aldrich MD (Electronically Signed) Final Date: 02 February 2022 17:16
--- NOTE | 2022-02-02 17:26 | P.PN ---
Progress Note - Text HPI: . This is an addendum to the consult PHYSICIAL EXAM: . IMPRESSION: 1. . 2. . 3. . 4. . 5. . RECOMMENDATIONS: Patient was seen and evaluated. She had a Lexiscan stress test previously. There was a question of ischemia but upon my review it looks more like a soft tissue attenuation with vigorous contractility of the anterior wall. The septum also contracts vigorously. This was a previous Lexiscan stress test. Her troponins are normal physical exam is unremarkable pain is atypical but given the circumstances am recommending a dobutamine echo tomorrow and will hold beta blockers for now. Her cardiac cath in 2016 was unremarkable for any significant obstructive disease. If dobutamine echo suggests abnormality she should have a cardiac cath. However quality of pain is atypical EKG is unremarkable for any new ischemic changes and troponins are also normal..
[2022-02-02] MEDS ORDERED: METOPROLOL SUCCINATE (ER) 50 MG TAB.ER.24H PO SCH (21:45)
[2022-02-02] MEDS ORDERED: PANTOPRAZOLE 40 MG TABLET PO SCH (21:45)
[2022-02-02] MEDS: busPIRone HCl 5 MG TAB PO SCH (22:23)
--- NOTE | 2022-02-02 22:24 | CT ---
EXAMINATION TYPE: CT chest wo con DATE OF EXAM: 02/02/2022 COMPARISON: None HISTORY: Chest pain, Covid + CT DLP: 359.80 mGycm Automated exposure control for dose reduction was used. Images obtained from the thoracic inlet to the diaphragm with no contrast. Heart size is normal. There is coronary artery calcification. No pericardial effusion. No pleural eff usion. There is 4.1 cm aneurysm of the ascending aorta. There is small hiatal hernia. There is surger y at the gastroesophageal junction. There are no hilar masses. No mediastinal adenopathy. There is some minimal interstitial increased density in the right lower lobe right paraspinal region. No discrete pulmonary mass. The thoracic spine is intact. Sternum is intact. No compression fracture. No rib fractures seen. IMPRESSION: Mild reticular interstitial infiltrate in the right lower lobe right paraspinal region. No suspicious pulmonary mass. Mild aneurysm of the ascending aorta.
[2022-02-03] MEDS ORDERED: ACETAMINOPHEN TAB 325 MG TAB PO PRN (04:28)
[2022-02-03] MEDS ORDERED: ONDANSETRON 4 MG/2 ML VIAL IVP PRN (04:28)
--- NOTE | 2022-02-03 04:46 | HP ---
HISTORY AND PHYSICAL HISTORY OF PRESENT ILLNESS: A 66-year-old white female with a COVID about a week ago. She has been having heaviness in her chest like tight wisely gripping over anterior chest. She has never had this pain before. She is also complaining of headaches, ever since she had COVID also. She had nausea and shortness of breath with exertion. She possibly has post COVID syndrome. She is in for rule out myocardial infarction. Cardiology is going to do a stress test in the morning to make sure it is not her heart. HOME MEDICATIONS: 1. Lopressor 100 daily. 2. Norvasc 10 mg daily. 3. Prevacid 30 mg daily. 4. HydroDIURIL 25 mg daily. 5. Simvastatin 10 mg daily. 6. BuSpar 5 mg daily. ALLERGIES: Negative. REVIEW OF SYSTEMS: A 14-point review of systems is negative except for mentioned in HPI. PAST MEDICAL HISTORY: Chest pain, angina, GERD, dyslipidemia, hypertension, hypothyroidism, hiatal hernia repair. She does not smoke, does not drink. FAMILY HISTORY: Father, heart disease. Mother, diabetes mellitus. PHYSICAL EXAMINATION: VITAL SIGNS: Temperature 98.7, pulse 60 to 61, respiratory rate 16 to 18, blood pressure 153/86, O2 of 99%. CARDIOVASCULAR: S1, S2. LUNGS: Normal. Decreased breath sounds. HEENT: Pupils equal, round, reactive. Head normocephalic, atraumatic. GI: Soft, nontender. EXTREMITIES: No cyanosis, clubbing, or edema. NEUROLOGIC: Cranial nerves intact. PSYCH: Fair mood and affect. SKIN: Warm and dry. EKG shows right bundle branch block. 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 Cardiology consult in the morning. Stress test in the morning. Continue with inhaler. Monitor blood pressures. Check further orders. D-dimer is negative. MMODL / IJN: [id number] /
[2022-02-03] MEDS ORDERED: DOBUTamine DRIP for NUC MED 500 MG in DEXTROSE/WATER 1 250ML.BAG IV PRN (05:00)
[2022-02-03] MEDS ORDERED: SYMBICORT 160-4.5 MCG INHALER INHALATION SCH (08:00)
[2022-02-03 08:55] LABS: Basophils # (A) 0.09 X 10*3/uL (0.00-0.10); Basophils % (A) 1.1 %; Eosinophils # (A) 0.05 X 10*3/uL (0.04-0.35); Eosinophils % (A) 0.6 %; HCT 44.7 % (37.2-46.3); HGB 14.8 g/dL (12.0-15.0); Immature Grans, Automated 4.8 %; Lymphocytes # (A) 1.81 X 10*3/uL (0.90-5.00); Lymphocytes % (A) 22.2 %; MCHC 33.1 g/dL (32.0-37.0); MCV 87.6 fL (80.0-97.0); Mean Platelet Volume 11.8 fL (9.5-12.2); Monocytes # (A) 0.79 X 10*3/uL (0.20-1.00); Monocytes % (A) 9.7 %; NRBC Per 100 WBC 0 /100 WBCS (0.0-0.0); Neutrophils # (A) 5.04 X 10*3/uL (1.80-7.70); Neutrophils % (A) 61.6 %; Platelet Count 183 X 10*3/uL (140-440); RDW 13.1 % (11.5-14.5); WBC 8.17 X 10*3/uL (4.50-10.00)
[2022-02-03] MEDS ORDERED: ASPIRIN 325 MG TAB PO SCH (09:00)
[2022-02-03] MEDS ORDERED: ATORVASTATIN 40 MG TAB PO SCH (09:00)
[2022-02-03] MEDS ORDERED: ASPIRIN 81 MG PO SCH (09:00)
[2022-02-03 09:05] LABS: Chol/HDL Ratio 5.84 Ratio; LDL Cholesterol,Calculated 111.4 mg/dL (0.0-131.0)
--- NOTE | 2022-02-03 09:19 | P.PN ---
Subjective This is a pleasant 66 year-old female past medical history significant for hypertension, dyslipidemia. She does not follow with a principal ios developer, did follow up with Dr. Aldrich in 2017 We have been asked to see in consultation for chest pain. Patient presents to the emergency department with complaints of chest discomfort. This morning, she got up, was doing her normal daily activities, and had acute onset upper/midsternal chest pressure and heaviness. It was non- radiating, non-exertional. She states it would come and go and became more frequent. She had associated shortness of breath, diaphoresis and nausea. No specific alleviating or aggravating factors. No emesis, denies any lightheadedness, dizziness, syncope or near syncope. She denies any headache, fever, cough or chills. She decided to present to the ER for further evaluation. She denies history of CAD, [place], Stroke, diabetes. She denies tobacco use, alcohol or illicit drug use. Family history includes father had CABG in his early 60s. She refused to take nitro secondary to side effects of headache. She remembers having her Lexiscan stress test a few months ago and was told that it was normal. DIAGNOSTICS * Last Cardiac Catheterization 2015 with no significant coronary artery disease * Lexiscan stress test 06/13/2021 reported pharmacologically induced left ventricular myocardial ischemia along the anteroseptal. Reviewed by Dr. Aldrich, and more likely a soft tissue attenuation with vigorous contractility of the anterior wall. The septum also contracts vigorously. 02/03/2022 Patient seen at bedside, no acute distress. She denies any chest pain or shortness of breath. No further chest pain since admission. Acute coronary syndrome has ruled out. Patient's Covid test positive. She endorses some nausea and a cough. Vital signs are stable. Echocardiogram revealed an EF of 5560 percent, trace to mild mitral regurgitation, mild tricuspid regurgitation, no pericardial effusion. CT of the chest reported mild reticular interstitial infiltrates in the right lower lobe. PHYSICAL EXAMINATION Vitals reviewed Limited exam secondary to covid-19 exposure CONSTITUTIONAL: No apparent distress. No chest pain or shortness of breath NEUROLOGIC EXAMINATION: Patient is awake, alert and oriented x3. ASSESSMENT Covid-19 Infection Chest pain, acute coronary syndrome has been ruled out Nausea Abnormal reported lexiscan stress test 06/13/[address] Aldrich, and more likely a soft tissue attenuation with vigorous contractility of the anterior wall. Hypertension Dyslipidemia PLAN An acute coronary event has been ruled out with no EKG evidence of ischemia and negative cardiac enzymes. From a cardiology perspective, no further inpatient workup at this time. Do not recommend stress test at this time, this can be performed as an outpatient. Discharge per primary. Follow up outpatient with Dr. Aldrich. Thank you kindly for this consultation. Nurse practitioner note has been reviewed by physician. Signing provider agrees with the documented findings, assessment, and plan of care. Objective - Vital Signs Vital signs: Vital Signs Temp 97.8 F 02/03/22 02:50 Pulse 71 02/03/22 02:50 Resp 18 02/03/22 02:50 BP 120/79 02/03/22 02:50 Pulse Ox 95 02/03/22 02:50 FiO2 Intake & Output 02/02/22 02/03/22 02/03/22 18:59 06:59 18:59 Weight 90.718 kg 90.718 kg Other: # Voids 2 - Labs CBC & Chem 7: 02/03/22 05:38 02/02/22 09:21 Labs: Abnormal Lab Results - Last 24 Hours (Table) 02/02/22 02/02/22 02/02/22 Range/Units 09:21 20:17 21:53 APTT 53.2 H (22.0-30.0) sec Sodium 135 L (137-145) mmol/L Glucose 145 H (74-99) mg/dL AST 49 H (14-36) U/L ALT 72 H (4-34) U/L Coronavirus (PCR) Detected A (Not Detectd)
[2022-02-03] MEDS: busPIRone HCl 5 MG TAB PO SCH (10:00)
[2022-02-03] MEDS ORDERED: VALSARTAN 160 MG TAB PO SCH (12:00)
[2022-02-03] MEDS: hydroCHLOROthiazide 25 MG TAB PO SCH (12:58)
[2022-02-03] MEDS: VALSARTAN 160 MG TAB PO SCH (12:58)
[2022-02-03 16:01] VITALS: BP 127/79; PULSE 54; RESP 20; TEMP 98.4
[2022-02-04] MEDS ORDERED: ATORVASTATIN 10 MG TAB PO SCH (09:00)
--- NOTE | 2022-02-04 12:59 | DS ---
DISCHARGE SUMMARY DISCHARGE DIAGNOSES: 1. Atypical chest pain. 2. Obstructive lung disease, status post COVID. 3. Anxiety. 4. Coronary artery disease. 5. Gastroesophageal reflux disease. 6. Hypertension. MEDICATIONS: 1. Symbicort 160/4.5 two puffs daily. 2. Aspirin 81 mg daily. 3. BuSpar 5 mg b.i.d. 4. Simvastatin 10 mg every 48 hours. 5. Omeprazole 20 mg daily. 6. Metoprolol ER 50 b.i.d. 7. Valsartan/hydrochlorothiazide one daily. CONDITION: Stable. PROGNOSIS: Guarded. ACTIVITY: Ambulate as tolerated. HOSPITAL COURSE: She came to the hospital with atypical chest pain. Cardiology did an echo, which came back good. She had a CAT scan of her chest, which shows from COVID pneumonia, no mass. Breathing was improved with Symbicort inhaler. I sent her home on one of those. Follow up as an outpatient after Cardiology cleared her for discharge. MMODL / IJN: [id number] /
== END 2022-02-03 19:02 | disposition home or self-care (01) ==
LOC: EC 08:35 → 6NMEDSUR 10:23
PROVIDERS: ADMIT Family Medicine; ATTEND Family Medicine
DX: R07.89 Other chest pain (principal); U07.1 COVID-19; J98.4 Other disorders of lung; I10 Essential (primary) hypertension; K21.9 Gastro-esophageal reflux disease without esophagitis; E78.5 Hyperlipidemia, unspecified; F41.9 Anxiety disorder, unspecified; I25.10 Atherosclerotic heart disease of native coronary artery without angina pectoris; I45.10 Unspecified right bundle-branch block; E03.9 Hypothyroidism, unspecified; I71.21 Aneurysm of the ascending aorta, without rupture; K44.9 Diaphragmatic hernia without obstruction or gangrene; I08.3 Combined rheumatic disorders of mitral, aortic and tricuspid valves; I37.1 Nonrheumatic pulmonary valve insufficiency; Z79.899 Other long term (current) drug therapy; Z82.49 Family history of ischemic heart disease and other diseases of the circulatory system; Z83.3 Family history of diabetes mellitus
CPT/HCPCS: 96366 ×3; 96365; 99285; 36415; 94640; 94760; 93005; 93306; 85379; 80061; 80053; 83735; 84484; 85025 ×2; 85610; 85730; 87635; 71046; 71250; G0378 ×2; J1644 ×2

== ENCOUNTER → 2022-07-27 | Outpatient (CLI) | payer MEDICARE, OTHER ==
--- NOTE | 2022-07-27 13:54 | US ---
EXAMINATION TYPE: US renal artery duplex complet DATE OF EXAM: 07/27/2022 COMPARISON: US CLINICAL HISTORY: I10 htn. Pt states recent change in blood pressure medication MEASUREMENTS: RENAL SIZE: Rt Kidney: 10.1 x 4.5 x 5.3 cm Lt Kidney: 11.4 x 4.3 x 4.8 cm Cyst lower pole left= 2.6 x 2.3 x 2.5 cm RESISTANCE INDEX Right: 0.6 Left: 0.7 RA/AO RATIO (< 3.5 ) Right: 1.9 Left: 2.1 RA VELOCITY ( < 180 cm/s) Right: 143 Left: 161 Visualized portions show no evidence of significant renal artery stenosis, pt had hard time holding b reath so only mid segmental and arcuate artery readings taken Cyst lower pole of kidney Incidental finding gallstones IMPRESSION: No evidence for renal artery stenosis. Ventral gallstones noted.
== END | disposition home or self-care (01) ==
LOC: RADUSWWP 07:44
PROVIDERS: ATTEND Family Medicine
DX: K80.20 Calculus of gallbladder without cholecystitis without obstruction (principal); I10 Essential (primary) hypertension
CPT/HCPCS: 93975

== ENCOUNTER → 2023-01-07 | Outpatient (CLI) | payer MEDICARE, OTHER ==
--- NOTE | 2023-01-08 08:42 | MM ---
Reason for Exam: Screening (asymptomatic). Last mammogram was performed 3 year(s) and 3 month(s) ago. Patient History: Menarche at age 16. First Full-Term at age 23. Postmenopausal. Benign Excisional Biopsy on the left side. Risk Values: Samantha 5 year model risk: 1.6%. NCI Lifetime model risk: 5.6%. Prior Study Comparison: 10/12/2017 Bilateral Screening Mammogram, [facility]. 10/13/2019 Bilateral Screening Mammogram, [facility]. 10/25/2019 Right Diagnostic Mammogram, [facility]. Tissue Density: The breast tissue is heterogeneously dense. This may lower the sensitivity of mammography. Findings: Analyzed By CAD. There is no suspicious group of microcalcifications or new suspicious mass in either breast. There is a new area of distortion outer central right breast. Additional views are recommended. Overall Assessment: Incomplete: need additional imaging evaluation, BI-RAD 0 Management: Diagnostic Mammogram of the right breast. . Patient should continue monthly self-breast exams. A clinical breast exam by your physician is recommended on an annual basis. This exam should not preclude additional follow-up of suspicious palpable abnormalities. Note on Samantha scores and lifetime risk: 1. A Samantha score greater than 3% is considered moderate risk. If this is the case, consider specialist referral to assess eligibility for a risk reducing agent. 2. If overall lifetime risk for the development of breast cancer is 20% or higher, the patient may qualify for future screening with alternating mammogram and breast MRI. Electronically signed and approved by: Dhruv Alvarez M.D. Radiologis
== END | disposition home or self-care (01) ==
LOC: RADMAMWWP 07:26
PROVIDERS: ATTEND Family Medicine
DX: Z12.31 Encounter for screening mammogram for malignant neoplasm of breast (principal); Z78.0 Asymptomatic menopausal state
CPT/HCPCS: 77067

== ENCOUNTER → 2023-08-27 | Outpatient (CLI) | payer MEDICARE, OTHER ==
[2023-08-27 16:08] LABS: ALT 13 U/L (8-44); Chol/HDL Ratio 3.65 Ratio; LDL Cholesterol,Calculated 107.4 mg/dL (0.0-131.0)
== END | disposition home or self-care (01) ==
LOC: LABWHC1 07:33
PROVIDERS: ATTEND Internal Medicine Interventional Cardiology
DX: E78.2 Mixed hyperlipidemia (principal)
CPT/HCPCS: 36415; 80061; 84460

== ENCOUNTER → 2023-10-25 | Outpatient (CLI) | payer MEDICARE, OTHER ==
--- NOTE | 2023-10-26 19:42 | US ---
EXAMINATION TYPE: US abdomen limited DATE OF EXAM: 10/25/2023 COMPARISON: US Renal artery 07/27/2022. CLINICAL INDICATION: Female, 68 years old with history of R10.11 RIGHT UPPER QUADRANT PAIN; TECHNIQUE: Multiple sonographic images of the right upper quadrant are obtained. FINDINGS: EXAM MEASUREMENTS: Liver Length: 16.1 cm Gallbladder Wall: 0.20 cm CBD: 0.5 cm Right Kidney: 10.3 x 4.8 x 4.7 cm ENGINEERING DEPARTMENT CHAIR NOTES: Pancreas: Tail obscured Liver: increased echogenicity compatible with mild fatty infiltration of liver. Gallbladder: Multiple echogenic foci with posterior shadowing Evidence for sonographic Lazaro's sign: No CBD: wnl Right Kidney: No hydronephrosis or masses seen IMPRESSION: 1. Cholelithiasis. 2. Mild fatty infiltration slightly enlarged liver.
== END | disposition home or self-care (01) ==
LOC: RADUSWWP 07:47
PROVIDERS: ATTEND Family Medicine
DX: K80.20 Calculus of gallbladder without cholecystitis without obstruction (principal); R16.0 Hepatomegaly, not elsewhere classified
CPT/HCPCS: 76705

== ENCOUNTER 2024-04-04 07:57 | Day surgery (SDC) | payer MEDICARE, OTHER ==
[2024-04-03 09:54] VITALS: BMI 34.2
[2024-04-04] MEDS ORDERED: LACTATED RINGERS 1,000 ML IV SCH (08:37)
[2024-04-04] MEDS ORDERED: LIDOCAINE 1% (10MG/ML) FOR IV START INTRADERMA PRN (08:37)
[2024-04-04 08:41] VITALS: RESP 16; TEMP 97.4
[2024-04-04] MEDS: IV FLUID CONTINUATION 1,000 ML IV ONE ×2 (08:51→09:50)
[2024-04-04] MEDS ORDERED: PROPOFOL 10 MG/ML 20 ML VIAL IV ONE (09:50)
--- NOTE | 2024-04-04 10:11 | P.PCN ---
Date of Procedure: 04/04/24 Procedure(s) Performed: BRIEF HISTORY: Patient is a 68-year-old pleasant white female scheduled for an elective colonoscopy as a part of evaluation by history of colon polyps. Last colonoscopy was 5 years ago and was noted to have a tubular adenoma. PROCEDURE PERFORMED: Colonoscopy snare polypectomy. PREOPERATIVE DIAGNOSIS: History of colon polyps. IV sedation per Anesthesia. PROCEDURE: After informed consent was obtained, the patient, was brought into the endoscopy unit. IV sedation was administered by Anesthesia under continuous monitoring. Digital rectal examination was normal. Initially the Olympus CF-160 flexible video colonoscope was then inserted in the rectum, gradually advanced into the cecum without any difficulty. Careful examination was performed as the scope was gradually being withdrawn. Ileocecal valve and the appendiceal orifice were visualized and appeared normal. Prep was excellent. Mucosa of the cecum, 1 cm nonbleeding arteriovenous malformation identified. Mucosa of the ascending colon, transverse colon, normal. The descending colon there was a 5 mm sessile polyp removed by cold snare polypectomy. Rest of the descending colon, sigmoid colon, and rectum appeared normal. Moderate sigmoid diverticulosis. Retroflexion was performed in the rectum and no lesions were seen. The patient tolerated the procedure well. IMPRESSION: 5 mm sessile descending colon polyp status post cold snare polypectomy 1 cm nonbleeding arteriovenous malformation in the base of the cecum Moderate sigmoid diverticulosis RECOMMENDATIONS: Findings of this examination were discussed with the patient as well as her family. She was advised to follow-up the biopsy results. If the biopsy reveals adenoma she can have repeat colonoscopy in 5 years..
[2024-04-04 10:28] VITALS: BP 100/69; PULSE 63
== END 2024-04-04 10:49 | disposition home or self-care (01) ==
LOC: ORWHC2ENDO 07:57
PROVIDERS: ATTEND Internal Medicine Gastroenterology
DX: Z12.11 Encounter for screening for malignant neoplasm of colon (principal); K63.5 Polyp of colon; K57.30 Diverticulosis of large intestine without perforation or abscess without bleeding; Z86.0101 Personal history of adenomatous and serrated colon polyps
CPT/HCPCS: 45385; J2704; 88305

== ENCOUNTER → 2024-07-17 | Outpatient (CLI) | payer MEDICARE, OTHER ==
[2024-07-17 09:46] LABS: African American GFR (CKD) >90 (>60 ml/min/1.73 sqM); Blood Urea Nitrogen 16 mg/dL (7-17); Non-African American GFR(CKD) >90 (>60 ml/min/1.73 sqM)
--- NOTE | 2024-07-17 11:20 | CT ---
EXAMINATION TYPE: CT angio chest DATE OF EXAM: 07/17/2024 11:03 AM COMPARISON: 02/02/2022 CLINICAL INDICATION: Female, 69 years old with history of I71.20 THORACIC AORTIC ANEURISM WO RUPTURE; THORACIC AORTIC ANEURYSM TECHNIQUE/CONTRAST: CTA scan of the thorax is performed with IV Contrast, patient injected with 100 ML mL of Isovue 300, MIP images are created and reviewed these are created on a separate workstation.. CT DLP: 582.80 mGycm, Automated exposure control for dose reduction was used. FINDINGS: Lungs/Pleura: No evidence of focal consolidation, pleural effusion or pneumothorax. Stable 2 mm lingu la pulmonary nodule. Airway: Large airways are patent. Heart: Size within normal limits. No significant coronary artery calcifications. Vasculature: No evidence for intramural hematoma on noncontrast imaging. No evidence of intimal flap to suggest dissection. The aorta in the thorax is somewhat tortuous. The origins of the major vessels of the aortic arch are patent. No aneurysm identified. There is ascending thoracic aorta ectasia up to 42 mm, similar to 02/02/2022 where measured 41 mm differences in cardiac cycle.. Scattered atheros clerotic disease. There is no evidence for a filling defect within the pulmonary vasculature to sugge st acute pulmonary embolism. The pulmonary artery is of normal size. Dilated bifurcation of the elvira ac artery with somewhat tortuous splenic artery. Mediastinum: No gross evidence of adenopathy. Musculoskeletal: No acute osseous abnormalities Soft Tissues/lymph nodes: Unremarkable. Lower neck: No significant findings. Upper Abdomen: N postsurgical changes gastroesophageal junction with moderate hiatal hernia. Scattere d colonic diverticula. Layering gallstones in the gallbladder lumen. Renal cortical cyst in the left kidney pressure visualized measuring 27 mm. No follow-up recommended. IMPRESSION: 1. No evidence for aortic aneurysm, dissection or occlusion. No evidence for pulmonary embolus in th e central pulmonary vasculature. Ascending thoracic aorta ectasia up to 42 mm. 2. Moderate hiatal hernia. 3. Cholelithiasis. 4. Colonic diverticulosis. Follow up recommendations for incidental pulmonary nodules, if there are any, are per [employer] or [employer]. [email or web address].org/[email or web address] [facility], , 07/17/2024 11:18 AM
== END | disposition home or self-care (01) ==
LOC: RADCTMAIN 09:04
PROVIDERS: ATTEND Internal Medicine Interventional Cardiology
DX: I77.810 Thoracic aortic ectasia (principal); K44.9 Diaphragmatic hernia without obstruction or gangrene; K80.20 Calculus of gallbladder without cholecystitis without obstruction; K57.30 Diverticulosis of large intestine without perforation or abscess without bleeding
CPT/HCPCS: 82565; 84520; 71275; Q9967